=== PATIENT | male | born 1980 | race Caucasian/White ===

== ENCOUNTER 2021-06-13 21:17 | Emergency (ER) | payer OTHER ==
[~2021-06-13] VITALS: Ht 177.8 cm; Wt 72.0 kg
[2021-06-14 01:16] VITALS: BP 140/90
[2021-06-14] MEDS ORDERED: cephalexin 500mg capsule PO ONE (01:20)
[2021-06-14] MEDS ORDERED: LIDOcaine 1% W/epiNEPHrine 1:200,000 10ml vial IJ ONE (01:20)
[2021-06-14] MEDS ORDERED: NAPR-56 PO (01:49)
[2021-06-14] MEDS ORDERED: HYDR-3965 PO (01:49)
[2021-06-14] MEDS ORDERED: CEPH250T PO (01:49)
[2021-06-14] MEDS ORDERED: ibuprofen tablet 400 MG TABLET PO ONE (01:55)
--- NOTE | 2021-06-14 02:03 | NUR ---
angela galvan at bedside suturing pt right shoulder and right hand at the first diget and thumb
--- NOTE | 2021-06-14 02:06 | NUR ---
ortho teck arrived
== END 2021-06-14 02:45 | disposition home or self-care (01) ==
LOC: ER 21:18
DX: S62.101A Fracture of unspecified carpal bone, right wrist, initial encounter for closed fracture (principal); S62.309A Unspecified fracture of unspecified metacarpal bone, initial encounter for closed fracture; S41.111A Laceration without foreign body of right upper arm, initial encounter; S61.210A Laceration without foreign body of right index finger without damage to nail, initial encounter; M25.531 Pain in right wrist; Z72.89 Other problems related to lifestyle; Z88.0 Allergy status to penicillin; Z79.2 Long term (current) use of antibiotics; Z79.899 Other long term (current) drug therapy; V89.2XXA Person injured in unspecified motor-vehicle accident, traffic, initial encounter; Y93.89 Activity, other specified; Y92.89 Other specified places as the place of occurrence of the external cause; Y99.8 Other external cause status
CPT/HCPCS: 12002; 73110; 99283; 99284